=== PATIENT | male | born 1950 | race Caucasian/White ===

== ENCOUNTER 2020-01-02 16:44 | Observation (INO) | payer OTHER ==
[~2020-01-02] VITALS: Ht 182.9 cm; Wt 82.2 kg
[~2020-01-02 16:44] MED LIST: ALBU90OI6 INH; ASPI81CH PO; ASPI81EC; ATOR10 PO; CAL MAG ZINC +1 EACH; DIVA125EC PO; DIVA500EC PO; FLAX PO; HYDACE5; HYDR1TAB94 PO; K-Phos Origina500 MG PO; LORA1; OCUVITE EYE +1 EACH PO; OXYACE5T PO; PARO30; PRED20 PO; QUET25; QUET300 PO; RANI150 PO; Ranitidine HCl150 M1 PO; SIMV10; Sleep Aid25 M1; TRAZ100; TRAZ100 PO; TRIM250 PO; UBID100 PO; VENL37.5ER PO; [UNRECOGNIZED DRUG - REMARK]; [UNRECOGNIZED DRUG - REMARK]; [UNRECOGNIZED DRUG - REMARK]
[2020-01-02 16:55] LABS: Calcium, Ionized (POC) 1.12 mmol/L (1.10-1.46); Chloride (POC) 108 mmol/L (98-108); Creatinine (POC) 1.1 mg/dL (0.8-1.3); Glucose (ISTAT POC) 80 mg/dL (70-99); Hemoglobin (POC) 15.3 g/dL (13.5-17.5); Potassium (POC) 3.8 mmol/L (3.5-5.5); Sodium (POC) 140 mmol/L (135-148); Total CO2 (POC) 19 mmol/L (21-32)
[2020-01-02 16:59] LABS: BASOPHILS ABSOLUTE AUTO 0.09 K/mm3 (0.00-0.23); BASOPHILS PERCENT AUTO 1 % (0-2); EOSINOPHILS PERCENT AUTO 2 % (0-6); Hematocrit 43.2 % (37.0-53.0); Hemoglobin 14.4 g/dL (13.5-17.5); IMMATURE GRAN ABSOLUTE AUTO 0.04 K/mm3 (0.00-0.10); IMMATURE GRAN PERCENT AUTO 0 % (0-1); LYMPHOCYTES ABSOLUTE AUTO 2.21 K/mm3 (0.84-5.20); LYMPHOCYTES PERCENT AUTO 19 % (21-46); MONOCYTES ABSOLUTE AUTO 0.86 K/mm3 (0.16-1.47); MONOCYTES PERCENT AUTO 7 % (4-13); Mean Corpuscular HGB 30.2 pg (26.0-34.0); Mean Corpuscular HGB Conc 33.3 g/dL (31.5-36.5); Mean Corpuscular Volume 91 fL (80-100); Mean Platelet Volume 10.9 fL (9.1-12.4); NEUTROPHILS ABSOLUTE AUTO 8.26 K/mm3 (1.96-9.15); NEUTROPHILS PERCENT AUTO 71 % (41-73); Platelet Count 260 K/mm3 (150-400); RDW Coefficient Variation 12.8 % (11.7-14.2); Red Blood Cell Count 4.77 M/mm3 (4.30-5.90); White Blood Cell Count 11.66 K/mm3 (4.00-11.30)
[2020-01-02 17:21] LABS: Alanine Aminotransfer (ALT/SGP 17 U/L (12-78); Albumin, Blood 3.7 g/dL (3.4-5.0); Albumin/Globulin Ratio 0.9 (0.8-1.8); Alk Phos 63 U/L (50-136); Anion Gap 8 mmol/L (6-16); Aspartate Aminotrans (AST/SGOT 15 U/L (12-37); Bilirubin, Total 0.4 mg/dL (0.1-1.0); Blood Urea Nitrogen 21 mg/dL (8-24); Bun/Creatinine Ratio 20.6 (12.0-20.0); CO2, Blood 22 mmol/L (21-32); Calcium, Blood 9.9 mg/dL (8.5-10.1); Chloride, Blood 112 mmol/L (98-108); Creatinine, Blood 1.02 mg/dL (0.60-1.20); Ethanol (Alcohol), Blood, Med <3 mg/dL; Globulin, Blood 4.1 g/dL (2.2-4.0); Glomerular Filtration Rate >60 (60-); Glucose, Blood 81 mg/dL (70-99); Potassium, Blood 3.9 mmol/L (3.5-5.5); Sodium, Blood 142 mmol/L (136-145); Total Protein, Blood 7.8 g/dL (6.4-8.2)
[2020-01-02 17:29] LABS: International Normalized Ratio 0.97; Prothrombin Time Results 10.4 Sec (9.7-11.5)
[2020-01-02] MEDS ORDERED: AMLO5 PO (19:07)
--- NOTE | 2020-01-02 22:17 | NUR ---
2207 69 Y/O MALE ADMITTED TO ROOM 343 PER CART FROM ER; PT TRANSFERRED FROM CART TO BED AND HAD LEFT SIDED LEG WEAKNESS WITH BALANCE UNSTEADY; PT LEFT ARM WEAK WITH PT HAVING DIFFICULT TOUCHING LEFT NARE WHEN EYES ARE CLOSED; PT DEMONSTRATED ABILITY TO SWALLOW SMALL LIQUID DRINK WATER; REPORT RECEIVED FROM DORIS FIORE RN; DENIES PAIN; BED ALARM APPLIED.
[2020-01-02 22:31] LABS: Magnesium, Blood 2.4 mg/dL (1.6-2.4)
[2020-01-02] MEDS ORDERED: MELATONIN5 M1 PO (22:52)
[2020-01-02] MEDS ORDERED: MAGNESIUM OXID500 MG PO (22:53)
[2020-01-02] MEDS ORDERED: Aspir 8181 MG PO (22:55)
[2020-01-02] MEDS ORDERED: Gas-X125 MG PO (22:55)
[2020-01-03 02:44] LABS: Source, Urine Clean Catch
[2020-01-03 03:02] LABS: Bilirubin, Urine Neg (Neg); Blood, Urine 1+ (Neg); Glucose Qualitative, Urine Neg (Neg); Ketones, Urine Neg (Neg); Leukocyte Esterase, Urine 3+ (Neg); Nitrite, Urine Pos (Neg); Protein, Urine 2+ (Neg); Urobilinogen, Urine NORM (Normal)
[2020-01-03 03:04] LABS: Appearance, Urine Hazy (Clear); Color, Urine Yellow (P-Yellow)
[2020-01-03 03:09] LABS: Bacteria Many /hpf; Red Blood Cells, Urine 0-2 /hpf (0-2); Squamous Epithelial Cells Not Seen /hpf (Few); White Blood Cells, Urine TNTC /hpf (0-5)
[2020-01-03 03:22] LABS: U Amphetamine Screen Not Detected; U Barbituate Screen Not Detected; U Benzodiazapine Screen Not Detected; U Buprenorphine Screen Not Detected; U Cannabinoids Screen DETECTED; U Cocaine Screen Not Detected; U Methadone Screen Not Detected; U Methamphetamine Screen Not Detected; U Opiates Screen Not Detected; U Oxycodone Screen Not Detected; U Phencyclidine Screen Not Detected; U Propoxyphene Screen Not Detected
--- NOTE | 2020-01-03 03:40 | NUR ---
SHIFT SUMMARY: 69 Y/O MALE CONTINUES HAVE EPISODES BRADYCARDIA 35-42 PER TRANSCRIBING MACHINE MECHANIC-QUIN WITH DR UNDERWOOD AWARE (ORDERS TO CONTINUE MONITOR); DENIES PAIN OR NAUSEA; PTS CONTINUES HAVE LEFT SIDED DEFICITS NOTED; UA SENT OFF LAB; PT SCHEDULED TO ECHO THIS AM; BED ALARM APPLIED, BED LOW POSITION WITH CALL LIGHT AT SIDE.
[2020-01-03 04:52] LABS: BASOPHILS ABSOLUTE AUTO 0.09 K/mm3 (0.00-0.23); BASOPHILS PERCENT AUTO 1 % (0-2); EOSINOPHILS ABSOLUTE AUTO 0.43 K/mm3 (0.00-0.68); EOSINOPHILS PERCENT AUTO 4 % (0-6); Hemoglobin 13.7 g/dL (13.5-17.5); IMMATURE GRAN ABSOLUTE AUTO 0.04 K/mm3 (0.00-0.10); IMMATURE GRAN PERCENT AUTO 0 % (0-1); LYMPHOCYTES ABSOLUTE AUTO 2.49 K/mm3 (0.84-5.20); LYMPHOCYTES PERCENT AUTO 24 % (21-46); MONOCYTES ABSOLUTE AUTO 0.97 K/mm3 (0.16-1.47); MONOCYTES PERCENT AUTO 9 % (4-13); Mean Corpuscular HGB 30.2 pg (26.0-34.0); Mean Corpuscular HGB Conc 33.4 g/dL (31.5-36.5); Mean Corpuscular Volume 90 fL (80-100); Mean Platelet Volume 11.2 fL (9.1-12.4); NEUTROPHILS ABSOLUTE AUTO 6.35 K/mm3 (1.96-9.15); NEUTROPHILS PERCENT AUTO 61 % (41-73); Platelet Count 243 K/mm3 (150-400); RDW Coefficient Variation 12.8 % (11.7-14.2); RDW Standard Deviation 42.8 fL (35.1-46.3); Red Blood Cell Count 4.54 M/mm3 (4.30-5.90); White Blood Cell Count 10.37 K/mm3 (4.00-11.30)
[2020-01-03 05:25] LABS: Alanine Aminotransfer (ALT/SGP 18 U/L (12-78); Albumin, Blood 3.3 g/dL (3.4-5.0); Albumin/Globulin Ratio 0.9 (0.8-1.8); Alk Phos 57 U/L (50-136); Anion Gap 7 mmol/L (6-16); Aspartate Aminotrans (AST/SGOT 13 U/L (12-37); Bilirubin, Total 0.4 mg/dL (0.1-1.0); Blood Urea Nitrogen 23 mg/dL (8-24); Bun/Creatinine Ratio 22.1 (12.0-20.0); CO2, Blood 24 mmol/L (21-32); Calcium, Blood 9.3 mg/dL (8.5-10.1); Chloride, Blood 110 mmol/L (98-108); Creatinine, Blood 1.04 mg/dL (0.60-1.20); Globulin, Blood 3.8 g/dL (2.2-4.0); Glomerular Filtration Rate >60 (60-); Glucose, Blood 108 mg/dL (70-99); Sodium, Blood 141 mmol/L (136-145); Total Protein, Blood 7.1 g/dL (6.4-8.2)
--- NOTE | 2020-01-03 16:00 | NUR ---
PT WENT AMA TODAY AT AROUND 1430. PT WAS PLEASANT AND COOPERATIVE THIS AM. HE WAS ABOUT TO GO HAVE A HEAD MRI AND SEEMED IN GOOD SPIRITS WHEN WE WERE GOING OVER THE PAPERWORK. RADIOLOGY CAME TO GET THE PT AND THE PT BECAME ANGRY AND INSISTED THAT HE WANTED TO LEAVE. THE PATIENT WOULD NOT TELL ME WHY HE WANTED TO LEAVE BUT INSISTED. HE ALSO THREATED TO RIP OUT HIS IV. DR MARIN NOTIFIED BEFORE PATIENT LEFT.
== END 2020-01-03 14:29 | disposition left against medical advice (07) ==
LOC: ER 16:44 → MEDS 16:45 → ER 21:50 → MEDS 21:50
PROVIDERS: Emergency Medicine; ADMIT Internal Medicine
DX: I63.9 Cerebral infarction, unspecified (principal); G47.33 Obstructive sleep apnea (adult) (pediatric); R53.1 Weakness; R00.1 Bradycardia, unspecified; Z53.29 Procedure and treatment not carried out because of patient's decision for other reasons; Z88.8 Allergy status to other drugs, medicaments and biological substances; E78.5 Hyperlipidemia, unspecified; F32.9 Major depressive disorder, single episode, unspecified; K21.9 Gastro-esophageal reflux disease without esophagitis; I10 Essential (primary) hypertension; Z79.899 Other long term (current) drug therapy; Z87.891 Personal history of nicotine dependence
CPT/HCPCS: 36415; 70450; 70496; 70498; 71045; 80047; 80053; 81001; 82947; 83735; 85014; 85025; 85610; 85730; 87077; 87086; 87186; 93005; 93010; 93306; 96372; 97116; 97161; 97165; 97530; 99285-25; A9270; A9270-GY; G0378; G0480; J1650; J7030; Q9967

== ENCOUNTER 2020-05-19 12:51 | Observation (INO) | payer OTHER, MEDICARE ==
[~2020-05-19] VITALS: Ht 188 cm; Wt 81.7 kg
[~2020-05-19 12:51] MED LIST changes: +AMLO5 PO; +Aspir 8181 MG PO; +Gas-X125 MG PO; +MAGNESIUM OXID500 MG PO; +MELATONIN5 M1 PO
[2020-05-20 05:36] LABS: Source, Urine Clean Catch
[2020-05-20 05:38] LABS: BASOPHILS ABSOLUTE AUTO 0.09 K/mm3 (0.00-0.23); BASOPHILS PERCENT AUTO 1 % (0-2); EOSINOPHILS PERCENT AUTO 2 % (0-6); Hematocrit 42.4 % (37.0-53.0); Hemoglobin 14.5 g/dL (13.5-17.5); IMMATURE GRAN ABSOLUTE AUTO 0.03 K/mm3 (0.00-0.10); IMMATURE GRAN PERCENT AUTO 0 % (0-1); LYMPHOCYTES PERCENT AUTO 28 % (21-46); MONOCYTES ABSOLUTE AUTO 0.97 K/mm3 (0.16-1.47); MONOCYTES PERCENT AUTO 10 % (4-13); Mean Corpuscular HGB 31.2 pg (26.0-34.0); Mean Corpuscular HGB Conc 34.2 g/dL (31.5-36.5); Mean Corpuscular Volume 91 fL (80-100); Mean Platelet Volume 11.7 fL (9.1-12.4); NEUTROPHILS ABSOLUTE AUTO 5.72 K/mm3 (1.96-9.15); NEUTROPHILS PERCENT AUTO 59 % (41-73); Platelet Count 269 K/mm3 (150-400); RDW Coefficient Variation 12.2 % (11.7-14.2); RDW Standard Deviation 40.8 fL (35.1-46.3); Red Blood Cell Count 4.65 M/mm3 (4.30-5.90); White Blood Cell Count 9.71 K/mm3 (4.00-11.30)
[2020-05-20 05:40] LABS: Appearance, Urine Cloudy (Clear); Bilirubin, Urine Neg (Neg); Blood, Urine 1+ (Neg); Color, Urine Yellow (P-Yellow); Glucose Qualitative, Urine Neg (Neg); Ketones, Urine 2+ (Neg); Leukocyte Esterase, Urine 3+ (Neg); Nitrite, Urine Pos (Neg); Protein, Urine 1+ (Neg); Urobilinogen, Urine NORM (Normal)
[2020-05-20 05:58] LABS: U Amphetamine Screen Not Detected; U Barbituate Screen Not Detected; U Benzodiazapine Screen DETECTED; U Buprenorphine Screen Not Detected; U Cannabinoids Screen DETECTED; U Cocaine Screen Not Detected; U Methadone Screen Not Detected; U Methamphetamine Screen Not Detected; U Opiates Screen Not Detected; U Oxycodone Screen Not Detected; U Phencyclidine Screen Not Detected; U Propoxyphene Screen Not Detected
[2020-05-20 06:05] LABS: White Blood Cells, Urine TNTC /hpf (0-5)
[2020-05-20 06:06] LABS: Bacteria Many /hpf; Squamous Epithelial Cells Few /hpf (Few)
[2020-05-20 06:48] LABS: Alanine Aminotransfer (ALT/SGP 23 U/L (12-78); Albumin, Blood 4.1 g/dL (3.4-5.0); Alk Phos 62 U/L (50-136); Anion Gap 8 mmol/L (6-16); Aspartate Aminotrans (AST/SGOT 36 U/L (12-37); Bilirubin, Total 0.5 mg/dL (0.1-1.0); Blood Urea Nitrogen 51 mg/dL (8-24); Bun/Creatinine Ratio 29.7 (12.0-20.0); CO2, Blood 24 mmol/L (21-32); Calcium, Blood 9.6 mg/dL (8.5-10.1); Chloride, Blood 109 mmol/L (98-108); Creatinine, Blood 1.72 mg/dL (0.60-1.20); Ethanol (Alcohol), Blood, Med <3 mg/dL; Globulin, Blood 4.2 g/dL (2.2-4.0); Glomerular Filtration Rate 42 (60-); Glucose, Blood 95 mg/dL (70-99); Potassium, Blood 4.6 mmol/L (3.5-5.5); Salicylate 4.1 mg/dL (2.8-20.0); Sodium, Blood 141 mmol/L (136-145); Thyroxine (T4) 8.8 ug/dL (4.5-12.1); Total Protein, Blood 8.3 g/dL (6.4-8.2)
[2020-05-20 06:55] LABS: Acetaminophen, Random <2.0 ug/mL (10.0-30.0)
[2020-05-21] MEDS ORDERED: Hydroxyzine HCl50 MG PO (13:34)
== END 2020-05-22 19:56 | disposition short-term general hospital (02) ==
LOC: ER 12:51 → EOR 12:52
PROVIDERS: ADMIT Emergency Medicine
DX: F33.9 Major depressive disorder, recurrent, unspecified (principal); F41.9 Anxiety disorder, unspecified; R45.851 Suicidal ideations; F16.11 Hallucinogen abuse, in remission; F12.10 Cannabis abuse, uncomplicated; F60.3 Borderline personality disorder; I10 Essential (primary) hypertension; G47.33 Obstructive sleep apnea (adult) (pediatric); R45.1 Restlessness and agitation; N39.0 Urinary tract infection, site not specified; B96.20 Unspecified Escherichia coli [E. coli] as the cause of diseases classified elsewhere; Z87.891 Personal history of nicotine dependence; Z88.5 Allergy status to narcotic agent; Z88.8 Allergy status to other drugs, medicaments and biological substances; Z88.6 Allergy status to analgesic agent; Z63.4 Disappearance and death of family member
CPT/HCPCS: 80053; 81001; 84436; 84443; 85025; 87077; 87086; 87186; 93005; 93010; 99285-25; A9270; G0378; G0480; J1200; J1630; J2060; Q3014

== ENCOUNTER 2020-05-28 11:21 | Inpatient (IN) | payer OTHER, MEDICARE ==
[~2020-05-28] VITALS: Ht 188 cm; Wt 83.3 kg
[~2020-05-28 11:21] MED LIST changes: +Hydroxyzine HCl50 MG PO
[2020-05-28] MEDS ORDERED: HYDPAM50 PO (11:52)
[2020-05-28] MEDS ORDERED: AMLO5 PO (11:52)
[2020-05-28] MEDS ORDERED: HYDCHL25 PO (11:52)
[2020-05-28] MEDS ORDERED: OLME20 PO (11:53)
[2020-05-28] MEDS ORDERED: SIMV10 PO (11:53)
[2020-05-28 12:20] LABS: BASOPHILS ABSOLUTE AUTO 0.07 K/mm3 (0.00-0.23); BASOPHILS PERCENT AUTO 1 % (0-2); EOSINOPHILS ABSOLUTE AUTO 0.32 K/mm3 (0.00-0.68); EOSINOPHILS PERCENT AUTO 4 % (0-6); Hematocrit 36.4 % (37.0-53.0); Hemoglobin 12.1 g/dL (13.5-17.5); IMMATURE GRAN ABSOLUTE AUTO 0.04 K/mm3 (0.00-0.10); IMMATURE GRAN PERCENT AUTO 1 % (0-1); LYMPHOCYTES ABSOLUTE AUTO 0.99 K/mm3 (0.84-5.20); LYMPHOCYTES PERCENT AUTO 11 % (21-46); MONOCYTES ABSOLUTE AUTO 0.89 K/mm3 (0.16-1.47); MONOCYTES PERCENT AUTO 10 % (4-13); Mean Corpuscular HGB 30.7 pg (26.0-34.0); Mean Corpuscular HGB Conc 33.2 g/dL (31.5-36.5); Mean Corpuscular Volume 92 fL (80-100); Mean Platelet Volume 11.8 fL (9.1-12.4); NEUTROPHILS ABSOLUTE AUTO 6.38 K/mm3 (1.96-9.15); NEUTROPHILS PERCENT AUTO 73 % (41-73); Platelet Count 248 K/mm3 (150-400); RDW Coefficient Variation 12.3 % (11.7-14.2); RDW Standard Deviation 41.8 fL (35.1-46.3); Red Blood Cell Count 3.94 M/mm3 (4.30-5.90); White Blood Cell Count 8.69 K/mm3 (4.00-11.30)
[2020-05-28 12:38] LABS: Albumin, Blood 3.4 g/dL (3.4-5.0); Bilirubin, Total 0.5 mg/dL (0.1-1.0); Bun/Creatinine Ratio 17.5 (12.0-20.0); Calcium, Blood 9.2 mg/dL (8.5-10.1); Creatinine, Blood 1.89 mg/dL (0.60-1.20); Globulin, Blood 3.5 g/dL (2.2-4.0); Potassium, Blood 4.5 mmol/L (3.5-5.5); Total Protein, Blood 6.9 g/dL (6.4-8.2)
--- NOTE | 2020-05-29 05:03 | NUR ---
SHIFT SUMMARY- PT. A&O, PLEASANT AND COOPERATIVE WITH CARE. HR IN THE 30'S AND 40'S PER TELEMETRY LAST NIGHT. STUDENT MINISTRIES DIRECTOR REPORTED PT. HAD WANDERING ATRIAL PACEMAKER WITH HR OF 48. [employer] W[employer] BUSINESS PERFORMANCE ADVISOR NOTIIFED. HOSPITALIST CAME UP TO PTS ROOM, HAD DISCUSSION WITH PT. THIS NURSE WAS INSTRUCTED TO INFORM DAY RN/ HOSPITALIST THAT PT. IS WILLING TO HAVE A PACEMAKER BUT WOULD REMAIN A DNR. PT. HAD NO C/O PAIN OR DISCOMFORT T/O THE NIGHT. APPEARED TO HAVE RESTED COMFORTABLY DURING THE NIGHT, IV FLUIDS INFUSING. CALL LIGHT WITHIN REACH AND SIDE RAILS UPX2. WILL CONT TO MONITOR.
[2020-05-29 05:18] LABS: Hematocrit 31.1 % (37.0-53.0); Hemoglobin 10.4 g/dL (13.5-17.5); Mean Corpuscular HGB 30.9 pg (26.0-34.0); Mean Corpuscular HGB Conc 33.4 g/dL (31.5-36.5); Mean Corpuscular Volume 92 fL (80-100); Mean Platelet Volume 11.3 fL (9.1-12.4); Platelet Count 213 K/mm3 (150-400); RDW Coefficient Variation 12.2 % (11.7-14.2); RDW Standard Deviation 41.6 fL (35.1-46.3); Red Blood Cell Count 3.37 M/mm3 (4.30-5.90)
[2020-05-29 05:46] LABS: Bun/Creatinine Ratio 19.2 (12.0-20.0); Calcium, Blood 8.2 mg/dL (8.5-10.1); Creatinine, Blood 1.51 mg/dL (0.60-1.20); Potassium, Blood 3.8 mmol/L (3.5-5.5)
[2020-05-29 10:41] LABS: Source, Urine Clean Catch
[2020-05-29 10:44] LABS: Appearance, Urine Clear (Clear); Bilirubin, Urine Neg (Neg); Blood, Urine Neg (Neg); Color, Urine Yellow (P-Yellow); Glucose Qualitative, Urine Neg (Neg); Ketones, Urine Neg (Neg); Leukocyte Esterase, Urine 2+ (Neg); Nitrite, Urine Neg (Neg); Protein, Urine Neg (Neg); Specific Gravity, Urine 1.015 (1.003-1.022); Urobilinogen, Urine NORM (Normal)
[2020-05-29 10:56] LABS: U Amphetamine Screen Not Detected; U Barbituate Screen Not Detected; U Benzodiazapine Screen Not Detected; U Buprenorphine Screen Not Detected; U Cannabinoids Screen DETECTED; U Cocaine Screen Not Detected; U Methadone Screen Not Detected; U Methamphetamine Screen Not Detected; U Opiates Screen Not Detected; U Oxycodone Screen Not Detected; U Phencyclidine Screen Not Detected; U Propoxyphene Screen Not Detected
[2020-05-29 11:03] LABS: Red Blood Cells, Urine 0-2 /hpf (0-2); Yeast/Fungi Urine Few /hpf
[2020-05-29 11:04] LABS: Bacteria Few /hpf; Squamous Epithelial Cells Not Seen /hpf (Few)
--- NOTE | 2020-05-29 18:03 | NUR ---
SHIFT SUMMARY PT AxOx4. PLEASANT AND COOPERATIVE WITH CARE. PT HAD CARDIO CONSULT TODAY. CURRENT PLAN IS FOR TREADMILL TEST IN THE AM WITH THE [facility]. PT WILL BE NPO AFTER MIDNIGHT. FRIEND, ENIO, IN ROOM TODAY FOR VISIT, AND UPDATED ON PLAN OF CARE. VITALS REVIEWED. PT CURRENTLY RESTING IN BED WITH CALL LIGHT IN REACH. DENIES ANY NEEDS AT THIS TIME.
[2020-05-30 15:42] LABS: Influenza A, PCR NEGATIVE (NEGATIVE); Influenza B, PCR NEGATIVE (NEGATIVE); Resp Syncytial Virus, PCR NEGATIVE (NEGATIVE); SARS-Cov-2 (COVID-19) PCR, MMC NEGATIVE (NEGATIVE)
--- NOTE | 2020-05-30 17:16 | NUR ---
SHIFT SUMMARY PT RESTING QUIETLY AT START OF SHIFT. NPO FOR STRESS TEST. PT VERY IRRITABLE FROM START OF SHIFT UNTIL LATER THIS AFTERNOON. PT DIFFICULT TO PLEASE. PT FREQUENTLY BENDING ARM, OCCLUDING IV SITE CAUSING PUMP TO BEEP. PT THEN BECOMING ANGRY ABOUT THE NOISE. PT LATER SL, PER DR LOCKWOOD. NRS PROJECT ADMINISTRATOR NOTIFIED FOR TIME OF STRESS TEST; PT UPDATED ON TIME. PT GIVEN MENU AT BREAKFAST FOR THE DAY, EVEN THOUGH NPO THIS AM. PT REFUSED TO FILL IT OUT AND SENT IT BACK BLANK. PT LATER ABLE TO EAT LUNCH WHEN RETURNED FROM TEST. PT THEN COMPLAINED ABOUT LUNCH FOOD CHOICES RECEIVED ON TRAY TO DR CANO WHEN SHE CAME IN TO DISCUSS PLAN OF CARE. PT TOLD DR CANO THAT HE DID NOT RECEIVE A MENU, WHEN HE IN FACT DID AND HAD TOLD DIETARY WHEN THEY CAME BY TO PICK IT UP "WHY IN THE HELL SHOULD I FILL IT OUT". ADDITIONAL MENU OBTAINED AND GIVEN WHEN DR LOCKWOOD IN RM. MENU FILLED OUT BY PT THIS TIME AND SENT BACK TO [facility]. STAT COVID TEST ORDERED FOR PACEMAKER PLACEMENT PROCEDURE ON MONDAY; OBTAINED AND SENT. PT A LITTLE MORE PLEASANT THIS AFTERNOON, ACTUALLY SAYING THANK YOU. PT RESTING QUIETLY, TAKING A NAP BEFORE DINNER; TELE MX CALLED TO REPORT HR DOWN TO UPPER 30'S, WHILE SLEEPING AGAIN. PT ASYMPTOMATIC. HAT CHECKER CURRENTLY IN RM PER ORDERS. NO C/O. CALL LT IN REACH.
--- NOTE | 2020-05-30 18:33 | NUR ---
Echocardiogram completed.
--- NOTE | 2020-05-31 04:12 | NUR ---
SHIFT SUMMARY PATIENT ALERT AND ORIENTED. HAD NO COMPLAINTS OF PAIN, DIZZINESS, OR SHORTNESS OF BREATH. PATIENT STAYED IN BED AND SLEPT WELL ALL SHIFT. IV PATENT AND FLUSHED. BED IN LOWEST POSITION WITH WHEELS LOCKED. CALL LIGHT WITHIN REACH. REPORT GIVEN TO ONCOMING RN.
[2020-05-31 04:52] LABS: BASOPHILS ABSOLUTE AUTO 0.08 K/mm3 (0.00-0.23); BASOPHILS PERCENT AUTO 1 % (0-2); EOSINOPHILS ABSOLUTE AUTO 0.31 K/mm3 (0.00-0.68); EOSINOPHILS PERCENT AUTO 4 % (0-6); Hematocrit 32.3 % (37.0-53.0); Hemoglobin 11.2 g/dL (13.5-17.5); IMMATURE GRAN ABSOLUTE AUTO 0.04 K/mm3 (0.00-0.10); IMMATURE GRAN PERCENT AUTO 1 % (0-1); LYMPHOCYTES ABSOLUTE AUTO 2.59 K/mm3 (0.84-5.20); LYMPHOCYTES PERCENT AUTO 33 % (21-46); MONOCYTES ABSOLUTE AUTO 0.75 K/mm3 (0.16-1.47); MONOCYTES PERCENT AUTO 10 % (4-13); Mean Corpuscular HGB Conc 34.7 g/dL (31.5-36.5); Mean Corpuscular Volume 90 fL (80-100); Mean Platelet Volume 10.3 fL (9.1-12.4); NEUTROPHILS ABSOLUTE AUTO 4.07 K/mm3 (1.96-9.15); NEUTROPHILS PERCENT AUTO 52 % (41-73); Platelet Count 219 K/mm3 (150-400); RDW Coefficient Variation 11.9 % (11.7-14.2); RDW Standard Deviation 38.8 fL (35.1-46.3); Red Blood Cell Count 3.61 M/mm3 (4.30-5.90); White Blood Cell Count 7.84 K/mm3 (4.00-11.30)
[2020-05-31 05:07] LABS: Anion Gap 4 mmol/L (6-16); Blood Urea Nitrogen 18 mg/dL (8-24); Bun/Creatinine Ratio 15.9 (12.0-20.0); CO2, Blood 23 mmol/L (21-32); Calcium, Blood 8.6 mg/dL (8.5-10.1); Chloride, Blood 117 mmol/L (98-108); Creatinine, Blood 1.13 mg/dL (0.60-1.20); Glomerular Filtration Rate >60 (60-); Glucose, Blood 88 mg/dL (70-99); Potassium, Blood 4.3 mmol/L (3.5-5.5); Sodium, Blood 144 mmol/L (136-145)
--- NOTE | 2020-05-31 10:15 | NUR ---
PT RESTING QUIETLY, AWAKE. NO C/O DURING SHIFT REPORT. TELE MX CALLED TO REPORT DR CANO ORDERING STAT EKG, AFTER WATCHING MX. 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 LATER REPORTING 8 BEAT RUN OF V-TACH. CHRG RN NOTIFIED OF STAT EKG. DR CANO LATER HERE TO SEE PT TO INFORM HIM OF A TEMP PACER PLACEMENT. PT THEN REPORTED THAT HE WAS HAVING SOME CHEST PRESSURE. STAT TROPONIN ORDERED. NRS TV HOST NOTIFIED OF TEMP PACER PLACEMENT. [facility] RN LATER HERE TO TAKE PT FOR PROCEDURE. PT TO GO TO ICU AFTER PROCEDURE.
--- NOTE | 2020-05-31 11:07 | NUR ---
PT ARRIVES TO ICU FROM PACKAGING SALES CONSULTANT POST TEMPORARY PACER PLACEMENT TO RIGHT IJ AT 1021. PACER SETTINGS RATE 60, OUTPUT 10, SENSING 2 MV. DRESSING C/D/I. WIRES 35 CM AND MARKED ON DRESSING AND SKIN. RATE ON MONITOR 55-60, MOSTLY PLACED c OCCASIONAL [place]K BEAT, OCCASIONAL PVCS NOTED. PT STATES HE IS FEELING MUCH BETTER. DENIES LIGHTHEADNESS, DIZZINESS OR CHEST PAIN. LUNGS CLEAR. BP STABLE. PERIPHERAL PULSES PAL. PT P/W/D. ORIENTED TO ROOM. WILL CONTINUE TO MONITOR.
--- NOTE | 2020-05-31 13:26 | NUR ---
PACEMAKER NOT SENSING OR CAPTURING. RATE 45-60. DR BARAJAS CALLED. PT DENIES DIZZINESS, LIGHTHEADNESS OR SOB. C/O LEFT SHOULDER PAIN. MEDICATED c TYLENOL. AWAITING DR BARAJAS TO REASSESSM.
--- NOTE | 2020-05-31 17:22 | NUR ---
SHIFT SUMMARY PT TRANSFERRED TO ICU AFTER TEMP PACER PLACEMENT. DR BARAJAS REASSESSED AFTER LOSS OF CAPTURE AND SENSING. CURRENT SETTINGS RATE 70, OUTPUT 10, SENSING 2. DRESSING INTACT, 35 CM. 100% CAPTURE. PT DENIES CP, DIZZINESS OR LIGHTHEADNESS. PT STATES LEFT SHOULDER PAIN RESOLVED AFTER PERCOCET ADMINISTRATION. VSS. PT USING URINAL INDEPENDENTLY IN BED. ABLE TO REPOSITION SELF INDEPENDENTLY. PLAN FOR PERMENANT PACEMAKER TOMORROW. WILL CONTINUE TO MONITOR UNTIL REPORT TO ONCOMING NURSE.
--- NOTE | 2020-05-31 20:00 | NUR ---
PATIENT AWAKE WATCHING TV, NO C/O PAIN OR DISCOMFORT. TRANSVENOUS PACER IN PLACE TO RIGHT IJ, AT APROX 35 CM MERLENE SET AT RATE 70, 10 AMP, 2 SENSITIVITY. MONITOR SHOWING PACED RHYTHM WITH OCCASIONAL PVC.
[2020-06-01 03:30] LABS: BASOPHILS ABSOLUTE AUTO 0.11 K/mm3 (0.00-0.23); BASOPHILS PERCENT AUTO 1 % (0-2); EOSINOPHILS ABSOLUTE AUTO 0.39 K/mm3 (0.00-0.68); EOSINOPHILS PERCENT AUTO 4 % (0-6); Hematocrit 38.5 % (37.0-53.0); Hemoglobin 13.2 g/dL (13.5-17.5); IMMATURE GRAN ABSOLUTE AUTO 0.05 K/mm3 (0.00-0.10); IMMATURE GRAN PERCENT AUTO 1 % (0-1); LYMPHOCYTES ABSOLUTE AUTO 3.21 K/mm3 (0.84-5.20); LYMPHOCYTES PERCENT AUTO 29 % (21-46); MONOCYTES ABSOLUTE AUTO 0.87 K/mm3 (0.16-1.47); MONOCYTES PERCENT AUTO 8 % (4-13); Mean Corpuscular HGB 30.6 pg (26.0-34.0); Mean Corpuscular HGB Conc 34.3 g/dL (31.5-36.5); Mean Corpuscular Volume 89 fL (80-100); Mean Platelet Volume 10.9 fL (9.1-12.4); NEUTROPHILS PERCENT AUTO 58 % (41-73); Platelet Count 252 K/mm3 (150-400); RDW Coefficient Variation 11.8 % (11.7-14.2); RDW Standard Deviation 38.5 fL (35.1-46.3); Red Blood Cell Count 4.32 M/mm3 (4.30-5.90); White Blood Cell Count 11.03 K/mm3 (4.00-11.30)
[2020-06-01 03:46] LABS: Anion Gap 3 mmol/L (6-16); Blood Urea Nitrogen 20 mg/dL (8-24); Bun/Creatinine Ratio 17.5 (12.0-20.0); CO2, Blood 27 mmol/L (21-32); Calcium, Blood 9.2 mg/dL (8.5-10.1); Chloride, Blood 113 mmol/L (98-108); Creatinine, Blood 1.14 mg/dL (0.60-1.20); Glomerular Filtration Rate >60 (60-); Glucose, Blood 99 mg/dL (70-99); Sodium, Blood 143 mmol/L (136-145)
--- NOTE | 2020-06-01 06:16 | NUR ---
DOCTOR EMILIA IN TO SEE PATIENT. PLAN FOR PACEMAKER PLACEMENT THIS MORNING.
--- NOTE | 2020-06-01 06:17 | NUR ---
SUMMARY PATIENT SLEEPING OFF AND ON T/O NIGHT. AWAKENS TO SLIGHT STIMULI. DENIES PAIN OR DISCOMFORT. TRANSVENOUS PACER TO RIGHT IJ REMAINS UNCHANGED T/O NIGHT. MONITOR SHOWING PACED RHYTHM WITH OCCASIONAL PVC. PACER SET RATE OF 70, 10 AMP, 2 SENSITIVITY. PLAN FOR PACEMAKER PLACEMENT EARLY THIS AM.
[2020-06-01 06:18] LABS: International Normalized Ratio 1.02; Prothrombin Time Results 10.9 Sec (9.7-11.5)
--- NOTE | 2020-06-01 06:45 | NUR ---
PATIENT TO ELECTRONIC TRAIN CONTROL TECHNICIAN FOR PACEMAKER VIA BED
--- NOTE | 2020-06-01 07:00 | NUR ---
ASSUMED PT CARE. PT IN THE [facility] FOR PERMANENT PACEMAKER PLACEMENT.
--- NOTE | 2020-06-01 09:20 | NUR ---
PT RETURNED FROM [facility]ART CENTER-S/P DUAL CHAMBER PERMANENT PACEMAKER PLACEMENT. PT A&OX4-DENIES PAIN OR DISCOMFORT. RIJ TEMPORARY PACER SITE WITH 4X4 AND CLEAR OCCLUSIVE DRESSING. NO BLEEDING OR HEMATOMA. RIGHT CHEST WALL-PERMANENT PACER SITE WITH CLEAR OCCLUSIVE DRESSING. DRESSING TO RIGHT CHEST WALL IS C/D/I. PORTABLE CXR DONE. RIGHT ARM PLACED IN SLING. PT MADE AWARE THAT THE DRESSING IS TO BE KEPT CLEAN AND DRY. ALSO, PT AWARE THAT THE RIGHT ARM IS TO BE USED LITTLE POSSIBLE AND TO REMAIN BELOW THE SHOULDER LEVEL. CARDIAC DIET RESUMED.
--- NOTE | 2020-06-01 11:30 | NUR ---
PT SITTING UP IN BED LISTENING TO MUSIC-DENIES PAIN AT THIS TIME. RIGHT ARM REMAINS IN SLING. RIJ AND RSC DRESSINGS REMAIN C/D/I.
--- NOTE | 2020-06-01 13:22 | NUR ---
NO ACUTE CHANGES. PT CONTINUES TO DENY COMPLAINTS.REPORT GIVEN TO STEPHANIA BRANDON IN PREP TO TRANSFER PT TO ROOM PCU 6.
--- NOTE | 2020-06-01 16:46 | NUR ---
UPDATE; IN PT ROOM DUE TO IV PUMP BEEPING. PT SITTING UPRIGHT IN BED TALKING WITH FRIEND. RIGHT ARM SLING PUSHED UP ON ARM AND PT TALKING WITH ARMS BALATERALLY. LIFTING RIGHT ARM UP OFF BED TO SHOW THIS RN HIS IV. REITERATED SEVERAL TIMES NOT TO USE ARM AND LEAVE ARM IN THE SLING. APPEARS ANXIOUS WITH RAMBLING SPEECH. EDUCATED ON IMPORTANCE OF NOT USING RIGHT ARM DUE TO NEW PACEMAKER. PT VERBALIZES UNDERSTANDING.
--- NOTE | 2020-06-01 18:03 | NUR ---
SHIFT SUMMARY PT ALERT AND ORIENTED. VS STABLE. O2 SATS REMAIN ABOVE 90% ON RA. BP STABLE. HR PACED. PT DENIES ANY PAIN SINCE TRANSFER TO UNIT. PT ABLE TO AMBULATE TO BATHROOM WITH SBA. RIGHT ARM IN SLING. DRESSING TO RIGHT CHEST WALL C/D/I. PT EDUCATED ON RIGHT ARM RESTRICTIONS. WILL CONTINUE TO MONITOR AND REPORT TO ONCOMING RN.
--- NOTE | 2020-06-02 05:03 | NUR ---
SHIFT SUMMARY NO ACUTE CHANGES THIS SHIFT. VSS. PT A&OX4. SP02>92% ON RA. TELEMETRY READS SR W/ PVC'S, HR 60'S. PT POST PACEMAKER, DRESSING C/D/I. PT WORE ARM SLING T/O SHIFT. PT UP TO BATHROOM X1 THIS SHIFT. PT USED URINAL AT BEDSIDE. PT DENIED PAIN. ABX INFUSED PER EMAR. CALL LIGHT IN REACH. PT DID NOT SLEEP MUCH THIS SHIFT, C/O OF "BEEPING" AND NOISES. ALL SCREENS AND ELECTRONICS IN ROOM, TURNED OFF PER PT'S REQUEST. WILL GIVE REPORT TO ONCOMING NURSE.
--- NOTE | 2020-06-02 10:47 | NUR ---
UPDATE PT ALERT AND ORIENTED. VS STABLE. CALL FROM DR. PRAJAPATI THIS AM REGAURDING PACEMAKER LEAD DISPLACEMENT. PT KEPT NPO. INTERROGATION DONE BY [employer] REP. PT AWARE OF PLAN TO GO BACK TO COAL PULVERIZER OPERATOR TO FIX LEAD PLACEMENT. PT UPSET, BUT EDUCATED TO HOW THE LEAD COULD BECOME DISPLACED. CONSENT AT BEDSIDE FOR DR. PRAJAPATI. WILL CONTINUE TO MONITOR CLOSELY.
--- NOTE | 2020-06-02 14:30 | NUR ---
UPDATE PT TAKEN TO TRAFFIC ENGINEERING DIRECTOR. WILL AWAIT RETURN.
--- NOTE | 2020-06-02 16:45 | NUR ---
UPDATE PT RETURNED FORM TRANSIT BUS OPERATOR WITH PACEMAKER PLACED TO RIGHT CHEST WALL. HR PACED AT 60. BP STABLE. PT DENIES ANY PAIN. PT ALERT AND ORIENTED. PT EDUCATED AGAIN ON RIGHT ARM RESTRICTIONS AND ARM IN SLING. WILL CONTINUE TO MONITOR CLOSELY.
--- NOTE | 2020-06-03 00:01 | NUR ---
PT UPDATE ROUNDED ON PT AT APPROX 2315 TO FIND PT RESTING IN BED, R ARM STRAIGHT AT SIDE, SLING ON BEDSIDE TABLE. INQUIRED WHY SLING WAS OFF, PT STATED HE "READ THE FAQ SHEET WHICH STATED SLING SHOULDN'T BE ON AT ALL TIMES." PT STATED THE FAQ SHEET SAID TO MOVE HIS ARM SO IT WOULDN'T "STIFFEN UP". INSTRUCTED PT IT WAS IMPORTANT FOR HIM TO WEAR SLING AT ALL TIMES A REMINDER TO NOT MOVE ARM TO ENSURE LEADS STAY IN PLACE. ARM SLING NOW IN PLACE.
--- NOTE | 2020-06-03 05:47 | NUR ---
SHIFT SUMMARY PT A&OX4. SP02>92% ON RA. TELEMETRY READS NSR, OCCASIONALLY PACED W/ PVC'S. HR 50'S-70'S. PT IS POST PACER PLACEMENT. PT WORE SLING MOST OF NIGHT. ONE EPISODE WHERE PT WAS FOUND WITH SLING OFF, SEE PREVIOUS NOTE. PT DENIED PAIN. PT USED URINAL AT BEDSIDE. ABX INFUSED PER EMAR. PT SLEPT PART OF NIGHT, AWAKE EARLY THIS MORNING WATCHING TV. IMAGING NOTIFIED THEY WOULD BE IN TO TAKE PT TO XRAY AT APPROX 0645. CALL LIGHT IN REACH. WILL GIVE REPORT TO ONCOMING NURSE.
[2020-06-03] MEDS ORDERED: CEPH500 PO (09:15)
--- NOTE | 2020-06-03 09:30 | NUR ---
DISCHARGE ORDER FOR PT DISHCARGE RECIEVED. PT PROVIDED WITH DISCHARGE INSTRUCTIONS, MEDICATION CHANGES AND APT TIMES. PT SIGNED DISHCARGE PAPERWORK. CHARGE, RN CALLED MEDICATION CHANGES INTO PT'S PREFERRED PHARMACY. IV REMOVED. TELEMETRY PATCHES REMOVED. [facility] CALLED BY VISH RN. PT TAKEN BY WHEELCHAIR TO [facility] BY STUDENT CARTRIDGE FEEDER'S WITH ALL BELONGINGS.
== END 2020-06-03 09:29 | disposition home or self-care (01) | DRG 243 ==
LOC: ER 11:21 → MEDS 11:22 → ICUW 05-31 10:00 → PCU 06-01 13:22
PROVIDERS: Emergency Medicine; Internal Medicine Cardiovascular Disease; Nurse Practitioner Acute Care; ADMIT Internal Medicine
PROC: 5A1223Z Performance of Cardiac Pacing, Continuous (ICD-10-PCS; 2020-05-31)
PROC: 0JH606Z Insertion of Pacemaker, Dual Chamber into Chest Subcutaneous Tissue and Fascia, Open Approach (ICD-10-PCS; principal; 2020-06-01)
PROC: 02HK3JZ Insertion of Pacemaker Lead into Right Ventricle, Percutaneous Approach (ICD-10-PCS; 2020-06-01)
PROC: 02WA0MZ Revision of Cardiac Lead in Heart, Open Approach (ICD-10-PCS; 2020-06-02)
PROC: 02H63JZ Insertion of Pacemaker Lead into Right Atrium, Percutaneous Approach (ICD-10-PCS; 2020-06-03)
DX: I49.5 Sick sinus syndrome (principal); I44.2 Atrioventricular block, complete; F33.1 Major depressive disorder, recurrent, moderate; N17.9 Acute kidney failure, unspecified; Q23.1 Congenital insufficiency of aortic valve; I47.2 Ventricular tachycardia; I12.9 Hypertensive chronic kidney disease with stage 1 through stage 4 chronic kidney disease, or unspecified chronic kidney disease; N18.30 Chronic kidney disease, stage 3 unspecified; E78.5 Hyperlipidemia, unspecified; K21.9 Gastro-esophageal reflux disease without esophagitis; Z66 Do not resuscitate; F42.9 Obsessive-compulsive disorder, unspecified; F60.3 Borderline personality disorder; F63.9 Impulse disorder, unspecified; I25.10 Atherosclerotic heart disease of native coronary artery without angina pectoris; F41.9 Anxiety disorder, unspecified; G43.909 Migraine, unspecified, not intractable, without status migrainosus; E86.0 Dehydration; D63.1 Anemia in chronic kidney disease; G62.9 Polyneuropathy, unspecified; I95.9 Hypotension, unspecified; Z20.822 Contact with and (suspected) exposure to COVID-19; G47.33 Obstructive sleep apnea (adult) (pediatric); Z88.6 Allergy status to analgesic agent; Z88.5 Allergy status to narcotic agent; Z88.8 Allergy status to other drugs, medicaments and biological substances; Z91.048 Other nonmedicinal substance allergy status; Z90.89 Acquired absence of other organs; Z98.890 Other specified postprocedural states; Z87.891 Personal history of nicotine dependence; Z79.899 Other long term (current) drug therapy
CPT/HCPCS: 0241U; 33208; 33210; 33215; 36415; 71045; 71046; 76937; 80048; 80053; 81001; 82550; 82728; 83540; 83550; 83735; 84484; 85025; 85027; 85610; 87086; 93005; 93010; 93017; 93306; 96360; 96361; 99152; 99153; 99285-25; A9270; C1781; C1785; C1894; C1898; G0378; J0690; J1644; J2250; J3010; J7030; J7040; J7050

== ENCOUNTER 2020-08-05 18:34 | Emergency (ER) | payer MEDICARE ==
[~2020-08-05] VITALS: Ht 188 cm; Wt 82.5 kg
[~2020-08-05 18:34] MED LIST changes: +CEPH500 PO; +HYDCHL25 PO; +HYDPAM50 PO; +OLME20 PO; +SIMV10 PO
[2020-08-05 19:10] LABS: BASOPHILS ABSOLUTE AUTO 0.08 K/mm3 (0.00-0.23); BASOPHILS PERCENT AUTO 1 % (0-2); EOSINOPHILS ABSOLUTE AUTO 0.28 K/mm3 (0.00-0.68); EOSINOPHILS PERCENT AUTO 3 % (0-6); Hematocrit 43.5 % (37.0-53.0); Hemoglobin 14.7 g/dL (13.5-17.5); IMMATURE GRAN ABSOLUTE AUTO 0.04 K/mm3 (0.00-0.10); IMMATURE GRAN PERCENT AUTO 0 % (0-1); LYMPHOCYTES ABSOLUTE AUTO 2.85 K/mm3 (0.84-5.20); LYMPHOCYTES PERCENT AUTO 27 % (21-46); MONOCYTES ABSOLUTE AUTO 0.73 K/mm3 (0.16-1.47); MONOCYTES PERCENT AUTO 7 % (4-13); Mean Corpuscular HGB 30.6 pg (26.0-34.0); Mean Corpuscular HGB Conc 33.8 g/dL (31.5-36.5); Mean Corpuscular Volume 91 fL (80-100); Mean Platelet Volume 10.1 fL (9.1-12.4); NEUTROPHILS ABSOLUTE AUTO 6.64 K/mm3 (1.96-9.15); NEUTROPHILS PERCENT AUTO 63 % (41-73); Platelet Count 280 K/mm3 (150-400); RDW Coefficient Variation 11.9 % (11.7-14.2); RDW Standard Deviation 39.6 fL (35.1-46.3); White Blood Cell Count 10.62 K/mm3 (4.00-11.30)
[2020-08-05 19:27] LABS: Albumin, Blood 3.8 g/dL (3.4-5.0); Albumin/Globulin Ratio 0.9 (0.8-1.8); Bilirubin, Total 0.4 mg/dL (0.1-1.0); Bun/Creatinine Ratio 24.6 (12.0-20.0); Calcium, Blood 9.4 mg/dL (8.5-10.1); Creatinine, Blood 1.34 mg/dL (0.60-1.20); Globulin, Blood 4.1 g/dL (2.2-4.0); Potassium, Blood 3.3 mmol/L (3.5-5.5); Total Protein, Blood 7.9 g/dL (6.4-8.2)
== END 2020-08-05 20:20 | disposition home or self-care (01) ==
LOC: ER 18:34
PROVIDERS: Emergency Medicine
DX: M79.651 Pain in right thigh (principal); I10 Essential (primary) hypertension; Z88.8 Allergy status to other drugs, medicaments and biological substances; Z87.891 Personal history of nicotine dependence; Z79.899 Other long term (current) drug therapy
CPT/HCPCS: 36415; 80053; 85025; 93005; 93010; 93971; 99284-25; A9270

== ENCOUNTER 2020-09-10 18:38 | Emergency (ER) | payer MEDICARE ==
[~2020-09-10] VITALS: Ht 190.5 cm; Wt 82.5 kg
== END 2020-09-10 21:45 | disposition home or self-care (01) ==
LOC: ER 18:38
DX: S82.64XA Nondisplaced fracture of lateral malleolus of right fibula, initial encounter for closed fracture (principal); S82.62XA Displaced fracture of lateral malleolus of left fibula, initial encounter for closed fracture; Z88.8 Allergy status to other drugs, medicaments and biological substances; W10.9XXA Fall (on) (from) unspecified stairs and steps, initial encounter
CPT/HCPCS: 29515; 73610; 99283-25

== ENCOUNTER 2020-09-23 20:36 | Emergency (ER) | payer MEDICARE ==
[~2020-09-23] VITALS: Ht 188 cm; Wt 79.4 kg
[2020-09-23 21:00] LABS: BASOPHILS ABSOLUTE AUTO 0.09 K/mm3 (0.00-0.23); BASOPHILS PERCENT AUTO 1 % (0-2); EOSINOPHILS ABSOLUTE AUTO 0.26 K/mm3 (0.00-0.68); EOSINOPHILS PERCENT AUTO 2 % (0-6); Hematocrit 43.2 % (37.0-53.0); Hemoglobin 14.8 g/dL (13.5-17.5); IMMATURE GRAN ABSOLUTE AUTO 0.09 K/mm3 (0.00-0.10); IMMATURE GRAN PERCENT AUTO 1 % (0-1); LYMPHOCYTES ABSOLUTE AUTO 3.44 K/mm3 (0.84-5.20); LYMPHOCYTES PERCENT AUTO 23 % (21-46); MONOCYTES ABSOLUTE AUTO 1.72 K/mm3 (0.16-1.47); MONOCYTES PERCENT AUTO 12 % (4-13); Mean Corpuscular HGB 30.1 pg (26.0-34.0); Mean Corpuscular HGB Conc 34.3 g/dL (31.5-36.5); Mean Corpuscular Volume 88 fL (80-100); Mean Platelet Volume 10.3 fL (9.1-12.4); NEUTROPHILS ABSOLUTE AUTO 9.27 K/mm3 (1.96-9.15); NEUTROPHILS PERCENT AUTO 62 % (41-73); Platelet Count 291 K/mm3 (150-400); RDW Coefficient Variation 12.6 % (11.7-14.2); RDW Standard Deviation 41.1 fL (35.1-46.3); Red Blood Cell Count 4.91 M/mm3 (4.30-5.90); White Blood Cell Count 14.87 K/mm3 (4.00-11.30)
[2020-09-23 21:37] LABS: Alanine Aminotransfer (ALT/SGP 16 U/L (12-78); Albumin, Blood 4.1 g/dL (3.4-5.0); Alk Phos 74 U/L (50-136); Anion Gap 9 mmol/L (6-16); Aspartate Aminotrans (AST/SGOT 14 U/L (12-37); Bilirubin, Total 0.4 mg/dL (0.1-1.0); Blood Urea Nitrogen 33 mg/dL (8-24); Bun/Creatinine Ratio 24.8 (12.0-20.0); CO2, Blood 24 mmol/L (21-32); Calcium, Blood 9.7 mg/dL (8.5-10.1); Chloride, Blood 108 mmol/L (98-108); Creatinine, Blood 1.33 mg/dL (0.60-1.20); Globulin, Blood 4.2 g/dL (2.2-4.0); Glomerular Filtration Rate 56 (60-); Glucose, Blood 83 mg/dL (70-99); Potassium, Blood 3.7 mmol/L (3.5-5.5); Sodium, Blood 141 mmol/L (136-145); Total Protein, Blood 8.3 g/dL (6.4-8.2); Troponin I <0.015 ng/mL (0.000-0.040)
== END 2020-09-23 22:47 | disposition home or self-care (01) ==
LOC: ER 20:36
PROVIDERS: Physician Assistant
DX: R07.9 Chest pain, unspecified (principal); K21.9 Gastro-esophageal reflux disease without esophagitis; I10 Essential (primary) hypertension; E78.5 Hyperlipidemia, unspecified; Z79.899 Other long term (current) drug therapy; Z88.8 Allergy status to other drugs, medicaments and biological substances; Z87.891 Personal history of nicotine dependence
CPT/HCPCS: 36415; 71046; 80053; 84484; 85025; 93005; 93010; 96372; 99284-25; J1885

== ENCOUNTER 2020-12-15 14:35 | Emergency (ER) | payer MEDICARE ==
[~2020-12-15] VITALS: Ht 190.5 cm; Wt 75.8 kg
[2020-12-15 15:42] LABS: White Blood Cell Count 13.92 K/mm3 (4.00-11.30)
[2020-12-15 15:43] LABS: BASOPHILS PERCENT AUTO 1 % (0-2); EOSINOPHILS ABSOLUTE AUTO 0.31 K/mm3 (0.00-0.68); EOSINOPHILS PERCENT AUTO 2 % (0-6); Hematocrit 39.1 % (37.0-53.0); Hemoglobin 13.3 g/dL (13.5-17.5); IMMATURE GRAN ABSOLUTE AUTO 0.05 K/mm3 (0.00-0.10); IMMATURE GRAN PERCENT AUTO 0 % (0-1); LYMPHOCYTES ABSOLUTE AUTO 2.02 K/mm3 (0.84-5.20); LYMPHOCYTES PERCENT AUTO 15 % (21-46); MONOCYTES ABSOLUTE AUTO 0.86 K/mm3 (0.16-1.47); MONOCYTES PERCENT AUTO 6 % (4-13); Mean Corpuscular HGB 30.8 pg (26.0-34.0); Mean Corpuscular Volume 91 fL (80-100); Mean Platelet Volume 10.3 fL (9.1-12.4); NEUTROPHILS ABSOLUTE AUTO 10.58 K/mm3 (1.96-9.15); NEUTROPHILS PERCENT AUTO 76 % (41-73); Platelet Count 244 K/mm3 (150-400); RDW Coefficient Variation 12.2 % (11.7-14.2); RDW Standard Deviation 40.9 fL (35.1-46.3); Red Blood Cell Count 4.32 M/mm3 (4.30-5.90)
[2020-12-15 15:53] LABS: Albumin, Blood 3.3 g/dL (3.4-5.0); Albumin/Globulin Ratio 0.8 (0.8-1.8); Bilirubin, Total 0.3 mg/dL (0.1-1.0); Bun/Creatinine Ratio 26.9 (12.0-20.0); Creatinine, Blood 1.45 mg/dL (0.60-1.20); Magnesium, Blood 2.5 mg/dL (1.6-2.4); Potassium, Blood 4.5 mmol/L (3.5-5.5); Total Protein, Blood 7.3 g/dL (6.4-8.2)
== END 2020-12-15 16:45 | disposition home or self-care (01) ==
LOC: ER 14:35
PROVIDERS: Emergency Medicine
DX: I95.9 Hypotension, unspecified (principal); I10 Essential (primary) hypertension; E78.5 Hyperlipidemia, unspecified; K21.9 Gastro-esophageal reflux disease without esophagitis; Z88.8 Allergy status to other drugs, medicaments and biological substances; Z87.891 Personal history of nicotine dependence; Z79.899 Other long term (current) drug therapy; Z95.0 Presence of cardiac pacemaker
CPT/HCPCS: 71046; 80053; 83735; 85025; 93005; 93010; 99284-25; J7030

== ENCOUNTER 2021-05-02 09:30 | Emergency (ER) | payer MEDICARE ==
[~2021-05-02] VITALS: Ht 188 cm; Wt 81.7 kg
[2021-05-02 09:58] LABS: BASOPHILS PERCENT AUTO 1 % (0-2); EOSINOPHILS ABSOLUTE AUTO 0.35 K/mm3 (0.00-0.68); EOSINOPHILS PERCENT AUTO 3 % (0-6); Hematocrit 38.2 % (37.0-53.0); Hemoglobin 12.7 g/dL (13.5-17.5); IMMATURE GRAN ABSOLUTE AUTO 0.06 K/mm3 (0.00-0.10); IMMATURE GRAN PERCENT AUTO 1 % (0-1); LYMPHOCYTES PERCENT AUTO 14 % (21-46); MONOCYTES ABSOLUTE AUTO 1.02 K/mm3 (0.16-1.47); MONOCYTES PERCENT AUTO 8 % (4-13); Mean Corpuscular HGB 31.1 pg (26.0-34.0); Mean Corpuscular HGB Conc 33.2 g/dL (31.5-36.5); Mean Corpuscular Volume 93 fL (80-100); Mean Platelet Volume 10.5 fL (9.1-12.4); NEUTROPHILS ABSOLUTE AUTO 9.25 K/mm3 (1.96-9.15); NEUTROPHILS PERCENT AUTO 74 % (41-73); Platelet Count 265 K/mm3 (150-400); RDW Coefficient Variation 11.7 % (11.7-14.2); RDW Standard Deviation 40.5 fL (35.1-46.3); Red Blood Cell Count 4.09 M/mm3 (4.30-5.90); White Blood Cell Count 12.58 K/mm3 (4.00-11.30)
[2021-05-02 10:17] LABS: Alanine Aminotransfer (ALT/SGP 16 U/L (12-78); Albumin, Blood 3.6 g/dL (3.4-5.0); Alk Phos 64 U/L (50-136); Anion Gap 7 mmol/L (6-16); Aspartate Aminotrans (AST/SGOT 13 U/L (12-37); Bilirubin, Total 0.3 mg/dL (0.1-1.0); Blood Urea Nitrogen 21 mg/dL (8-24); Bun/Creatinine Ratio 19.6 (12.0-20.0); CO2, Blood 25 mmol/L (21-32); Calcium, Blood 8.8 mg/dL (8.5-10.1); Chloride, Blood 109 mmol/L (98-108); Creatinine, Blood 1.07 mg/dL (0.60-1.20); Globulin, Blood 3.6 g/dL (2.2-4.0); Glomerular Filtration Rate >60 (60-); Glucose, Blood 107 mg/dL (70-99); Potassium, Blood 4.1 mmol/L (3.5-5.5); Sodium, Blood 141 mmol/L (136-145); Total Protein, Blood 7.2 g/dL (6.4-8.2)
== END 2021-05-02 12:08 | disposition home or self-care (01) ==
LOC: ER 09:30
PROVIDERS: Emergency Medicine
DX: R42 Dizziness and giddiness (principal); M79.7 Fibromyalgia; I10 Essential (primary) hypertension; G47.33 Obstructive sleep apnea (adult) (pediatric); K21.9 Gastro-esophageal reflux disease without esophagitis; Z88.8 Allergy status to other drugs, medicaments and biological substances; Z88.5 Allergy status to narcotic agent; Z79.899 Other long term (current) drug therapy
CPT/HCPCS: 71045; 80053; 85025; 93005; 93010; 99284-25

== ENCOUNTER 2022-06-15 20:15 | Emergency (ER) | payer MEDICARE ==
[~2022-06-15] VITALS: Ht 190.5 cm; Wt 90.7 kg
[2022-06-15] MEDS ORDERED: LIDO700A20 TOP (23:36)
== END 2022-06-15 23:42 | disposition home or self-care (01) ==
LOC: ER 20:15
DX: S70.01XA Contusion of right hip, initial encounter (principal); S30.0XXA Contusion of lower back and pelvis, initial encounter; W01.198A Fall on same level from slipping, tripping and stumbling with subsequent striking against other object, initial encounter; I10 Essential (primary) hypertension; Z88.5 Allergy status to narcotic agent; Z88.1 Allergy status to other antibiotic agents; Z79.899 Other long term (current) drug therapy
CPT/HCPCS: 72100; 73502; 93005; 93010; A9270

== ENCOUNTER 2023-03-19 22:04 | Emergency (ER) | payer MEDICARE ==
[~2023-03-19] VITALS: Ht 188 cm; Wt 85.7 kg
[~2023-03-19 22:04] MED LIST changes: +LIDO700A20 TOP
[2023-03-19 22:10] VITALS: BP 138/82
== END 2023-03-19 23:00 | disposition home or self-care (01) ==
LOC: ER 22:04
DX: S96.911A Strain of unspecified muscle and tendon at ankle and foot level, right foot, initial encounter (principal); I10 Essential (primary) hypertension; Z79.899 Other long term (current) drug therapy; Z88.8 Allergy status to other drugs, medicaments and biological substances; X50.3XXA Overexertion from repetitive movements, initial encounter
CPT/HCPCS: 73620; 96374; 99283-25; J1885

== ENCOUNTER 2024-02-04 17:22 | Emergency (ER) | payer OTHER ==
[~2024-02-04] VITALS: Ht 190.5 cm; Wt 92.5 kg
[2024-02-04 18:23] LABS: BASOPHILS ABSOLUTE AUTO 0.06 K/mm3 (0.00-0.23); BASOPHILS PERCENT AUTO 1 % (0-2); EOSINOPHILS ABSOLUTE AUTO 0.44 K/mm3 (0.00-0.68); EOSINOPHILS PERCENT AUTO 4 % (0-6); Hematocrit 37.8 % (37.0-53.0); Hemoglobin 12.8 g/dL (13.5-17.5); IMMATURE GRAN ABSOLUTE AUTO 0.04 K/mm3 (0.00-0.10); IMMATURE GRAN PERCENT AUTO 0 % (0-1); LYMPHOCYTES ABSOLUTE AUTO 2.04 K/mm3 (0.84-5.20); LYMPHOCYTES PERCENT AUTO 17 % (21-46); MONOCYTES ABSOLUTE AUTO 0.91 K/mm3 (0.16-1.47); MONOCYTES PERCENT AUTO 8 % (4-13); Mean Corpuscular HGB 32.2 pg (26.0-34.0); Mean Corpuscular HGB Conc 33.9 g/dL (31.5-36.5); Mean Corpuscular Volume 95 fL (80-100); NEUTROPHILS ABSOLUTE AUTO 8.71 K/mm3 (1.96-9.15); NEUTROPHILS PERCENT AUTO 71 % (41-73); Platelet Count 253 K/mm3 (150-400); RDW Coefficient Variation 12.2 % (11.7-14.2); RDW Standard Deviation 42.7 fL (35.1-46.3); Red Blood Cell Count 3.97 M/mm3 (4.30-5.90)
[2024-02-04] MEDS ORDERED: PRAMIPEXOLE D0.25 M1 PO (18:38)
[2024-02-04] MEDS ORDERED: OLMESARTAN MEDO40 MG PO (18:39)
[2024-02-04] MEDS ORDERED: ROSUVASTATIN CA20 MG PO (18:39)
[2024-02-04] MEDS ORDERED: ZOLOFT10013 PO (18:39)
[2024-02-04 18:43] LABS: Albumin, Blood 3.3 g/dL (3.4-5.0); Albumin/Globulin Ratio 0.8 (0.8-1.8); Bilirubin, Total 0.3 mg/dL (0.1-1.0); Calcium, Blood 8.9 mg/dL (8.5-10.1); Creatinine, Blood 1.22 mg/dL (0.60-1.20); Globulin, Blood 3.9 g/dL (2.2-4.0); Potassium, Blood 4.7 mmol/L (3.5-5.5); Total Protein, Blood 7.2 g/dL (6.4-8.2)
[2024-02-04] MEDS ORDERED: Oxymetazoline 0.05% Nasal Relief Spray 15mL BTL ONE (19:00)
[2024-02-04] MEDS ORDERED: Ipratropium/Albuterol SulF 2.5-0.5MG/3 ML Amp INH ONE (19:00)
[2024-02-04] MEDS ORDERED: Dexamethasone Sod Phos 10 MG/ML 1ML VIAL PO ONE (20:20)
[2024-02-04 20:30] VITALS: BP 151/87
== END 2024-02-04 20:40 | disposition home or self-care (01) ==
LOC: ER 17:22
PROVIDERS: Emergency Medicine
DX: J20.9 Acute bronchitis, unspecified (principal); I10 Essential (primary) hypertension; F33.1 Major depressive disorder, recurrent, moderate; E78.00 Pure hypercholesterolemia, unspecified; Z95.0 Presence of cardiac pacemaker; Z88.8 Allergy status to other drugs, medicaments and biological substances; Z79.899 Other long term (current) drug therapy; Z87.891 Personal history of nicotine dependence
CPT/HCPCS: 71046; 80053; 83880; 85025; 93005; 93010; 94640; 94664; 99284-25; A9270; J1100

== ENCOUNTER 2025-02-03 05:03 | Emergency (ER) | payer OTHER ==
[~2025-02-03] VITALS: Ht 160 cm; Wt 89.8 kg
[~2025-02-03 05:03] MED LIST changes: +OLMESARTAN MEDO40 MG PO; +PRAMIPEXOLE D0.25 M1 PO; +ROSUVASTATIN CA20 MG PO; +ZOLOFT10013 PO
[2025-02-03 05:22] LABS: Source, Urine Clean Catch
[2025-02-03 05:23] VITALS: BP 118/76
[2025-02-03 05:34] LABS: Bilirubin, Urine Neg (Neg); Glucose Qualitative, Urine Neg (Neg); Ketones, Urine 3+ (Neg); Leukocyte Esterase, Urine 3+ (Neg); Protein, Urine 4+ (Neg); Specific Gravity, Urine 1.010 (1.003-1.022); Urobilinogen, Urine NORM (Normal)
[2025-02-03 05:44] LABS: Color, Urine Yellow (P-Yellow)
[2025-02-03 05:46] LABS: White Blood Cells, Urine TNTC /hpf (0-5)
[2025-02-03] MEDS ORDERED: CEFP200 PO (05:51)
== END 2025-02-03 06:11 | disposition home or self-care (01) ==
LOC: ER 05:03
PROVIDERS: Emergency Medicine
DX: N39.0 Urinary tract infection, site not specified (principal); Z87.891 Personal history of nicotine dependence; Z95.0 Presence of cardiac pacemaker
CPT/HCPCS: 51798; 81001; 87077; 87086; 87186; 99283-25; A9270